=== PATIENT | male | born 1975 | race Caucasian/White ===

== ENCOUNTER 2021-01-22 15:04 | Outpatient (CLI) | payer BC, SELFPAY | END 2021-01-22 15:05 | disposition home or self-care (01) | LOC: ANHCOVIDVC 15:04 | PROVIDERS: PCP Emergency Medicine | DX: Z23 Encounter for immunization (principal) | CPT/HCPCS: 0001A; 91300 ==

== ENCOUNTER → 2021-02-01 02:46 | Outpatient (CLI) | payer BC, SELFPAY ==
[2021-02-01 19:44] LABS: SARS-CoV-2 RNA PCR Negative
== END ==
PROVIDERS: PCP Emergency Medicine; Visit Provider Internal Medicine Gastroenterology
DX: Z01.812 Encounter for preprocedural laboratory examination (principal); Z20.822 Contact with and (suspected) exposure to COVID-19
CPT/HCPCS: C9803; U0003; U0005

== ENCOUNTER 2021-02-04 12:08 | Day surgery (SDC) | payer BC, SELFPAY ==
[2021-01-23 13:59] VITALS: BMI 29.9
[2021-02-04 10:25] VITALS: BP 167/98; PULSE 53; RESP 20; TEMP 36.4; O2SAT 100
[2021-02-04] MEDS: LACTATED RINGERS 1,000 ML 150 ML IV CONT (10:31)
--- NOTE | 2021-02-04 10:55 | PM.HPGS ---
History of Present Illness History of Present Illness Consent: Risks, benefits, and alternatives have been discussed and questions answered. Patient agrees to proceed with procedure. Chief complaint: Rectal Bleeding Narrative: New Restrepo Jr. is a 45 year old male here for first screening colonoscopy Review of Systems Constitutional: Constitutional: Denies headache(s) and Denies weakness Eyes: Eyes: Denies blurry vision ENT: Reports Normal hearing present, Denies headache(s) and Denies neck pain Cardiovascular: Cardiovascular: Denies chest pain and Denies dyspnea Respiratory: Respiratory: Denies dyspnea Gastrointestinal: Gastrointestinal: Reports no additional gastrointestinal complaints Genitourinary: Genitourinary: Denies dysuria Musculoskeletal: Musculoskeletal: Denies neck pain Integumentary/Breasts: Skin/Breast: Denies dry skin Neurologic: Reports Normal hearing present, Denies headache(s) and Denies weakness Psychiatric: Psychiatric: Denies anxiety Endocrine: Endocrine: Denies change in body appearance Hematologic/Lymphatic: Hematologic/Lymphatic: Denies easy bleeding Allergic/Immunologic: Allergic/Immunologic: Denies urticaria PMFSH Past Medical History Medical History (Updated 02/04/21 @ 10:56 by Miguel A Decker MD) Colon cancer screening HLD (hyperlipidemia) Family History Family History Father Family history of throat cancer, Onset Age: 62 Other Depression Family history of heart disease in male family member before age 55 Hypertension Social History Social History Smoking status: Never smoker Smokeless tobacco user: chewing tobacco Second hand tobacco smoke exposure: Yes Alcohol intake: current Substance use type: does not use Gender identity (if verbalized by the patient): Male Spiritual care concerns: No Meds Home Medications and Allergies Home Medications Medication Instructions Recorded Confirmed Type losartan 50 mg tablet 50 mg PO DAILY #30 tablet 10/05/19 02/04/21 Rx allopurinol 100 mg tablet See Rx Instructions .ROUTE 04/01/20 02/04/21 Rx .COMPLEX #90 tablet naltrexone 50 mg tablet 50 mg PO DAILY #30 tablet 09/06/20 02/04/21 Rx alprazolam 1 mg tablet 1 mg PO DAILY #30 tablet 12/26/20 02/04/21 Rx sertraline 50 mg PO DAILY 02/04/21 02/04/21 History zolpidem [Ambien] 10 mg PO HS PRN 02/04/21 02/04/21 History Allergies Allergy/AdvReac Type Severity Reaction Status Date / Time No Known Allergies Allergy Verified 02/04/21 10:24 Vital Signs Vital Signs - 24 hr 02/04/21 10:25 Temperature 97.5 F L Pulse Rate 53 L Respiratory Rate 20 Blood Pressure 167/98 H Pulse Oximetry 100 Exam Const: General: comfortable and no acute distress HENMT: General nose exam: Normal nares present Eyes: General: appearance normal, both eyes and all related structures Neck: Neck: no JVD Resp: Auscultation: clear to auscultation bilaterally Cardio: Rate: regular rate Rhythm: regular rhythm GI: Inspection: non-distended GI Palp: Yes Soft to palpation Skin: General skin exam: normal color Neuro: General: gait normal Speech: normal speech Extrem: General: normal to inspection Psych: Mental Status: mental status grossly normal Assessment and Plan Assessment and plan (1) Colon cancer screening: Code(s): Z12.11 - Encounter for screening for malignant neoplasm of colon Status: Acute Assessment and Plan: proceed with colonoscopy
--- NOTE | 2021-02-04 11:02 | WPDANESEPPF ---
Anes - Initial Pre Proc Eval Procedure: Operation Date: 02/04/21 12:30 Proposed Procedures p Colonoscopy - Miguel A Decker MD Date/Time: 02/04/21 11:02 Surgeon: Miguel A Decker MD Pre Op Diagnosis: Rectal Bleeding Patient Data Age: 45 Gender: M Height: 6 ft Weight: 104.6 kg Last Vital Signs Temp 97.5 F L 02/04/21 10:25 Pulse 53 L 02/04/21 10:25 Resp 20 02/04/21 10:25 BP 167/98 H 02/04/21 10:25 Pulse Ox 100 02/04/21 10:25 Allergies Allergy/AdvReac Type Severity Reaction Status Date / Time No Known Allergies Allergy Verified 02/04/21 10:24 Home Medications Medication Instructions Recorded Confirmed Type losartan 50 mg tablet 50 mg PO DAILY #30 tablet 10/05/19 02/04/21 Rx allopurinol 100 mg tablet See Rx Instructions .ROUTE 04/01/20 02/04/21 Rx .COMPLEX #90 tablet naltrexone 50 mg tablet 50 mg PO DAILY #30 tablet 09/06/20 02/04/21 Rx alprazolam 1 mg tablet 1 mg PO DAILY #30 tablet 12/26/20 02/04/21 Rx sertraline 50 mg PO DAILY 02/04/21 02/04/21 History zolpidem [Ambien] 10 mg PO HS PRN 02/04/21 02/04/21 History Patient hx anesthesia problems: none Family hx anesthesia problems: none PMFSH Past Medical History Medical History (Updated 02/04/21 @ 10:56 by Miguel A Decker MD) Colon cancer screening HLD (hyperlipidemia) Family History Family History Father Family history of throat cancer, Onset Age: 62 Other Depression Family history of heart disease in male family member before age 55 Hypertension Social History Social History Smoking status: Never smoker Smokeless tobacco user: chewing tobacco Second hand tobacco smoke exposure: Yes Alcohol intake: current Substance use type: does not use Gender identity (if verbalized by the patient): Male Spiritual care concerns: No Anes - Eval Final PreProcedure Day of Procedure 02/04/21 11:02 Patient weight: obese Heart: regular rate and rhythm Lungs: clear to auscultation Airway: Mallampati scale class II Neurological: alert and oriented Last oral intake: >/= 8 hours ASA classification: III Emergent: no Anesthetic plan: proceed Anesthesia type and monitoring: general GIVS and standard monitoring Informed Consent: The patient's anesthetic plan and its attendant risks and benefits were discussed with the patient/family/POA. Questions were solicited and answers provided to the satisfaction of the patient/family/POA.
[2021-02-04 11:26] VITALS: BP 120/73; PULSE 54; RESP 15; O2SAT 99
[2021-02-04 11:36] VITALS: BP 138/79; PULSE 72; RESP 17; O2SAT 97
[2021-02-04 11:46] VITALS: BP 138/82; PULSE 52; RESP 21; O2SAT 100
== END 2021-02-04 12:10 | disposition home or self-care (01) ==
LOC: ANHENDO 12:09
PROVIDERS: PCP Emergency Medicine; Visit Provider Internal Medicine Gastroenterology
PROC: 0DJD8ZZ Inspection of Lower Intestinal Tract, Via Natural or Artificial Opening Endoscopic (ICD-10-PCS; CPT 45378; principal; 2021-02-04 12:30)
DX: Z12.11 Encounter for screening for malignant neoplasm of colon (principal); D12.4 Benign neoplasm of descending colon; K63.5 Polyp of colon; K57.30 Diverticulosis of large intestine without perforation or abscess without bleeding; K64.8 Other hemorrhoids; E78.5 Hyperlipidemia, unspecified; E66.9 Obesity, unspecified; Z68.31 Body mass index [BMI] 31.0-31.9, adult
CPT/HCPCS: 45385; 88305; C9803; J2704; J7120; U0003; U0005

== ENCOUNTER 2021-02-12 15:23 | Outpatient (CLI) | payer BC, SELFPAY | END 2021-02-12 15:24 | LOC: ANHCOVIDVC 15:23 | PROVIDERS: PCP Emergency Medicine | DX: Z23 Encounter for immunization (principal) | CPT/HCPCS: 0002A; 91300 ==

== ENCOUNTER → 2021-06-12 03:17 | Outpatient (CLI) | payer BC, SELFPAY ==
[2021-06-12 20:01] LABS: SARS-CoV-2 RNA PCR Negative
== END ==
PROVIDERS: PCP Emergency Medicine; Visit Provider Emergency Medicine
DX: J02.9 Acute pharyngitis, unspecified (principal); R05 Cough; R53.83 Other fatigue; Z20.822 Contact with and (suspected) exposure to COVID-19
CPT/HCPCS: C9803; U0003; U0005

== ENCOUNTER → 2021-06-26 08:20 | Outpatient (CLI) | payer BC, SELFPAY ==
--- NOTE | ~2021-06-26 | MR_ITS ---
EXAMINATION: MR wrist RT wo con DATE: 06/26/2021 08:58 INDICATION: Right wrist pain. TECHNIQUE: Magnetic resonance imaging (MRI) of the wrist was performed without intravenous contrast. Sequences performed include coronal T1-weighted FSE, coronal PD-weighted FS FSE, axial PD-weighted FS FSE, axial PD-weighted FSE, sagittal PD-weighted FSE, and sagittal PD-weighted FS FSE. COMPARISON: Right wrist radiographs 06/05/2021 FINDINGS: Intrinsic ligaments: There is degeneration of scapholunate ligament without well-defined tear. Triangular fibrocartilage complex (TFCC): There is a perforation of triangular fibrocartilage. Extensor wrist: There is moderate tendinopathy of extensor pollicis brevis and abductor pollicis longus (De Quervain tendinopathy). There is a 19 x 7 x 7 mm multiloculated synovial cyst between these tendons and scapho id. The origin of the synovial cyst is not clear. A skin marker overlies this area. Flexor wrist: The flexor tendons are normal. Median nerve is normal. Guyon's canal: Ulnar nerve is normal. Bones/other: There is ankylosis of lunate and triquetrum. There is a tiny marginal osteophyte of triscaphe joint. IMPRESSION: 1. De Quervain tendinopathy. 2. 19 x 7 x 7 mm synovial cyst deep to these tendons. Reviewed, dictated and finalized at location A.
== END ==
PROVIDERS: Visit Provider Orthopaedic Surgery
DX: M65.4 Radial styloid tenosynovitis [de Quervain] (principal); M71.331 Other bursal cyst, right wrist
CPT/HCPCS: 73221

== ENCOUNTER 2023-10-08 13:06 | Outpatient (CLI) | payer BC, SELFPAY ==
--- NOTE | ~2023-10-08 | XR_ITS ---
Clinical Indication: Cough PA and lateral views of the chest: Comparison: 10/05/2006 Findings: The lungs are clear, without evidence of focal consolidation or pleural effusion. Cardiome diastinal silhouette is within normal limits. Bones and soft tissues are unremarkable. Impression: Normal chest. Reviewed, dictated and finalized at [facility]. [employer] PATHOLOGIST Impression: Normal chest.
== END 2023-10-08 13:07 | disposition home or self-care (01) ==
PROVIDERS: PCP Family Medicine; Visit Provider Physician Assistant Medical
DX: J20.9 Acute bronchitis, unspecified (principal)
CPT/HCPCS: 71046

== ENCOUNTER 2024-04-03 13:25 | Outpatient (CLI) | payer BC, SELFPAY ==
--- NOTE | 2024-04-03 13:40 | ECHO_ITS ---
Patient Info Name: Rosales Restrepo Age: 48 years : 1975 Gender: Male Ht: 72 in Wt: 225 lbs BSA: 2.30 m2 HR: 57 bpm BP: 153 / 98 mmHg Heart Rhythm: Sinus Rhythm Technical Quality: Good Exam Date: 04/03/2024 1:47 PM Exam Location: Echo Lab Patient Status: Outpatient Admit Date: 04/03/2024 Staff Ordering Physician: Merna Baptiste Nursing Assistants Teacher: Saskia Parra RDCS Attending Provider: Merna Baptiste Referring Physician: Emile KUMAR; Exam Type: CA echo doppler color flow Study Info Indications R01.1 - Cardiac murmur, unspecified Complete two-dimensional, color flow and Doppler transthoracic echocardiogram is performed. Summary 1. Complete two-dimensional, color flow and Doppler transthoracic echocardiogram is performed. 2. Left ventricular chamber dimension is normal. 3. Left ventricular systolic function is normal, estimated at 65-70%. 4. There is moderate concentric increased left ventricular wall thickness. 5. The left ventricular diastolic function is abnormal. 6. E/e' 12 is mildly elevated. 7. Left atrial chamber dimension is moderately enlarged. 8. Right atrial chamber dimension is mildly enlarged. 9. There is trace mitral valve regurgitation. 10. There is trace tricuspid valve regurgitation. 11. No pulmonary hypertension, estimated pulmonary arterial systolic pressure is 25 mmHg. Left Ventricle E/e' 12 is mildly elevated. Left ventricular chamber dimension is normal. Left ventricular systolic function is normal, estimated at 65-70%. There is moderate concentric increased left ventricular wall thickness. The left ventricular diastolic function is abnormal. Right Ventricle Right ventricular systolic function is normal and with normal TAPSE 2.2 cm. Right ventricular chamber dimension is normal. Left Atria Left atrial chamber dimension is moderately enlarged. Right Atria Right atrial chamber dimension is mildly enlarged. Aortic Valve The aortic valve is trileaflet. There is no aortic valve stenosis. There is no aortic valve regurgitation. Pulmonic Valve There is no pulmonic regurgitation. Mitral Valve There is no mitral valve stenosis. There is trace mitral valve regurgitation. Tricuspid Valve There is trace tricuspid valve regurgitation. No pulmonary hypertension, estimated pulmonary arterial systolic pressure is 25 mmHg. Pericardium/Pleural There is no pericardial effusion. Inferior Vena Cava Normal inferior vena cava with >50% collapse upon inspiration consistent with normal right atrial pressure, 5 mmHg. Aorta The aortic root size at the sinus of Valsalva is normal. Left Ventricular Outflow Tract Name Value Normal LVOT 2D LVOT Diameter 2.0 cm LVOT Doppler LVOT Peak Gradient 11 mmHg LVOT Mean Gradient 7 mmHg LVOT VTI 30 cm LVOT VTI/AV VTI Ratio 0.9 LVOT Stroke Volume 98 ml Pulmonic Valve Name Value Normal RVOT Doppler -------
== END 2024-04-03 13:26 | disposition home or self-care (01) ==
PROVIDERS: PCP Family Medicine; Visit Provider Physician Assistant Medical
DX: R01.1 Cardiac murmur, unspecified (principal)
CPT/HCPCS: 93306

== ENCOUNTER 2024-05-26 10:34 | Outpatient (CLI) | payer BC, SELFPAY ==
--- NOTE | ~2024-05-26 | XR_ITS ---
Left foot Technique: AP, oblique, and lateral views were obtained. Clinical History: Lateral side pain Findings: No acute fracture or dislocation is seen. Chronic nonunited fracture or accessory ossicle p resent at the medial aspect of the base of the distal phalanx of the great toe. Osseous alignment is anatomic. Joint spaces are preserved without erosive or degenerative change. Soft tissues are unremar kable. Impression: No acute abnormality. Reviewed, dictated and finalized at location M. Impression: No acute abnormality.
== END 2024-05-26 10:35 ==
LOC: MICIMG 10:38
PROVIDERS: PCP Family Medicine; Visit Provider Nurse Practitioner Family
DX: M79.672 Pain in left foot (principal)
CPT/HCPCS: 73630

== ENCOUNTER 2024-10-31 07:47 | Outpatient (CLI) | payer BC, SELFPAY ==
--- NOTE | ~2024-10-31 | XR_ITS ---
Right foot Technique: AP, oblique, and lateral views were obtained. Clinical History: Gout Findings: No acute fracture or dislocation is seen. Osseous alignment is anatomic. Joint spaces are p reserved without erosive or degenerative change. Soft tissues are unremarkable. Impression: Unremarkable right foot radiographs. Reviewed, dictated and finalized at location . BING FOREMAN Impression: Unremarkable right foot radiographs.
== END 2024-10-31 07:48 | disposition home or self-care (01) ==
LOC: MICIMG 07:48
PROVIDERS: PCP Family Medicine; Visit Provider Nurse Practitioner Family
DX: M10.9 Gout, unspecified (principal)
CPT/HCPCS: 73630